=== PATIENT | male | born 1995 | race Caucasian/White ===

== ENCOUNTER 2024-12-14 23:37 | Emergency (ER) | payer SELFPAY ==
[~2024-12-14] VITALS: Ht 167.6 cm; Wt 93.1 kg
[2024-12-14 23:53] VITALS: O2SAT 99
[2024-12-14 23:56] VITALS: BP 131/81; PULSE 90; RESP 16; TEMP 36.9; O2SAT 99
== END 2024-12-15 08:45 | disposition left against medical advice (07) ==
LOC: ER 12-15 00:18
DX: R51.9 Headache, unspecified (principal); Z53.21 Procedure and treatment not carried out due to patient leaving prior to being seen by health care provider